=== PATIENT | male | born 1945 | race Caucasian/White ===

== ENCOUNTER → 2017-08-23 12:41 | Outpatient (CLI) | payer MEDICARE, SELFPAY ==
--- NOTE | 2017-08-23 11:30 | LES_PTH ---
PATIENT: RAVI CYR LOC: [facility] U#:[id number] AGE/SX: 80/M ROOM: RE08/23/[address]: Dr. Maynor Azevedo MD : [id number] BED: DIS: SPEC #: [id number] RECD: 08/23/17 14:16 STATUS: ELVIRA BHAVESH #: [id number] LILLIAN: 08/23/17 11:[address]: Maynor Azevedo DEPT: SURGICAL PATHOLOGY RECD BY: Myah Ocasio Tissues: Skin of eyelid, NOS Procedures: Surgery Specimen Level IV HEADER OPERATION: Lesion removal right upper lid PRE-OP DIAGNOSIS: Verruca present x6-7 months, itch, block vision TISSUE SUBMITTED: Right upper eyelid MICROSCOPIC DIAGNOSIS Right upper eyelid lesion, biopsy: Fibroepithelial polyp, mildly inflamed. AM:tova 08/26/17 MICROSCOPIC DESCRIPTION Slides are reviewed. GROSS DESCRIPTION Received in fixative is one container labeled with the patient's name and designated right upper lid. The specimen consists of an irregular fragment of ivory tissue measuring 0.3 x 0.3 x 0.2 cm. The specimen is totally submitted in one cassette. / AM:tova 08/23/17 TC:5 CPT: 50708
== END ==
PROVIDERS: Visit Provider Ophthalmology
DX: H02.89 Other specified disorders of eyelid (principal)
CPT/HCPCS: 88305